=== PATIENT | female | born 2000 | race Caucasian/White ===

== ENCOUNTER 2022-02-25 21:02 | Emergency (ER) | payer MEDICAID ==
[~2022-02-25] VITALS: Ht 154.9 cm; Wt 62.4 kg
[2022-02-26] MEDS ORDERED: ACETAMINOPHEN 325MG TABLET PO PRN (02:30)
[2022-02-26 02:57] LABS: HEMATOCRIT. 40.3 % (36.0-48.0); HEMOGLOBIN. 13.7 g/dL (12.0-16.0); MEAN CORPUSCULAR HEMOGLOBIN 31.9 pg (28.0-32.0); MEAN CORPUSCULAR VOLUME 93.9 fL (81.0-99.0); MEAN PLATELET VOLUME 8.3 fl (7.4-10.4); PLATELET 288 x1000/uL (130-400); RED BLOOD CELL COUNT 4.29 mill/uL (4.2-5.4); RED CELL DISTRIBUTION WIDTH 12.5 % (11.6-14.6)
[2022-02-26 03:01] LABS: CHLORIDE 107 mEq/L (98-107)
[2022-02-26 03:04] LABS: CLARITY URINE TURBID (CLEAR); COLOR URINE RED (YELLOW); KETONES URINE NEGATIVE (NEGATIVE); LEUKOCYTE ESTERASE URINE 2+ (NEGATIVE); NITRITE URINE POSITIVE (NEGATIVE); OCCULT BLOOD URINE 2+ (NEGATIVE); PROTEIN URINE 2+ (NEGATIVE); SPECIFIC GRAVITY URINE 1.029 (1.005-1.030); UROBILINOGEN URINE 0.2 E.U./dL (0.2-1.0)
[2022-02-26 03:24] LABS: B-HCG QUANTITATIVE 8999 mIU/mL (<3)
[2022-02-26] MEDS ORDERED: LIDOCAINE HCL/PF 1% 10 MG/ML 5ML VIAL INFIL NR (04:15)
[2022-02-26] MEDS ORDERED: CEFTRIAXONE SODIUM 1 G/VIAL IM NR (04:15)
[2022-02-26 05:12] LABS: PLATELET ESTIMATE NORMAL
[2022-02-26] MEDS ORDERED: IBUP-2029 PO (07:08)
[2022-02-26] MEDS ORDERED: MISOPROSTOL 200MCG TABLET PO ONE (07:15)
[2022-02-26 08:49] VITALS: BP 113/74
== END 2022-02-26 08:00 | disposition home or self-care (01) ==
LOC: ER 21:02
DX: O02.1 Missed abortion (principal)
CPT/HCPCS: 36415; 76801; 76817; 80053; 81003; 81025; 84702; 85025; 86850; 86900; 86901; 96372; 99284; J0696; J3490

== ENCOUNTER 2022-02-27 08:27 | Emergency (ER) | payer MEDICAID, OTHER ==
[~2022-02-27] VITALS: Ht 167.6 cm; Wt 73.0 kg
[~2022-02-27 08:27] MED LIST: IBUP-2029 PO
[2022-02-27 09:51] LABS: BASOPHILS % 0.7 % (0.0-2.0); EOSINOPHILS % 13.1 % (0.0-5.0); HEMATOCRIT. 37.8 % (36.0-48.0); HEMOGLOBIN. 12.8 g/dL (12.0-16.0); LYMPHOCYTES % 34.7 % (20.0-50.0); MEAN CORPUSCULAR HEMOGLOBIN 31.8 pg (28.0-32.0); MEAN CORPUSCULAR VOLUME 93.6 fL (81.0-99.0); MEAN PLATELET VOLUME 8.6 fl (7.4-10.4); MONOCYTES % 4.4 % (2.0-8.0); NEUTROPHILS % 47.1 % (40.0-76.0); PLATELET 262 x1000/uL (130-400); RED BLOOD CELL COUNT 4.04 mill/uL (4.2-5.4); RED CELL DISTRIBUTION WIDTH 12.3 % (11.6-14.6)
[2022-02-27 09:54] LABS: CHLORIDE 104 mEq/L (98-107)
[2022-02-27] MEDS ORDERED: POTASSIUM CHLORIDE 20MEQ TABLET SR PO ONE (10:45)
[2022-02-27 14:40] VITALS: BP 103/57
== END 2022-02-27 14:57 | disposition home or self-care (01) ==
LOC: ER 08:27
DX: O03.9 Complete or unspecified spontaneous abortion without complication (principal); O26.92 Pregnancy related conditions, unspecified, second trimester; Z3A.22 22 weeks gestation of pregnancy
CPT/HCPCS: 36415; 76801; 80053; 84702; 85025; 86850; 86900; 99284